=== PATIENT | male | born 1980 | race Two or more races ===

== ENCOUNTER 2024-12-14 11:51 | Emergency (ER) | payer OTHER ==
[~2024-12-14] VITALS: Ht 154.9 cm; Wt 81.6 kg
[2024-12-14] MEDS ORDERED: BRUKINSA80 MG (12:51)
[2024-12-14] MEDS ORDERED: IBU600 MG PO (17:15)
== END 2024-12-14 17:39 | disposition home or self-care (01) ==
LOC: ER 11:53
DX: H61.22 Impacted cerumen, left ear (principal); Z87.898 Personal history of other specified conditions